=== PATIENT | male | born 1995 | race Caucasian/White ===

== ENCOUNTER 2016-09-27 18:18 | Emergency (ER) | payer OTHER ==
[2016-09-27 18:24] VITALS: BP 154/99; PULSE 112; TEMP 98; BMI 34.1
[2016-09-27] MEDS ORDERED: DIPHTH,PERTUSS(ACELL),TET 0.5 ML DISP.SYRIN IM ONE (19:03)
--- NOTE | 2016-09-27 19:15 | PDOC ---
History of Present Illness - General Chief Complaint: Laceration Stated Complaint: LT HAND LACERATION Time Seen by Provider: 09/27/16 18:48 History Source: Patient - History of Present Illness Occurred: reports: this afternoon Upper Extremity Pain Location: left: hand Method of Injury: reports: fell Past History - Past Medical History Allergies/Adverse Reactions: Allergies Allergy/AdvReac Type Severity Reaction Status Date / Time No Known Allergies Allergy Verified 09/27/16 18:24 Home Medications: Ambulatory Orders Amox-Tr/K Cl [Augmentin - 875Mg Tablet] 1 tab PO BID #20 tablet 12/01/15 Fluticasone Prop 0.05% Nasal [Flonase -] 1 spray NS BID #1 spray.pump 12/01/15 Azithromycin [Zithromax -] 250 mg PO DAILY #4 tab 06/14/16 Cetirizine HCl [Zyrtec -] 10 mg PO DAILY #30 tablet 06/14/16 Montelukast Na [Singulair -] 10 mg PO HS #30 tablet 06/14/16 Other medical history: DENIES - Immunization History Immunization Up to Date: No - Psycho/Social/Smoking Cessation Hx Anxiety: No Suicidal Ideation: No Smoking Status: No Smoking History: Never smoked Number of Cigarettes Smoked Daily: 0 Information on smoking cessation initiated: No Hx Alcohol Use: No Drug/Substance Use Hx: No Substance Use Type: None Review of Systems - Review of Systems Neurological: No: Headache, Tingling *Physical Exam - Vital Signs Last Vital Signs Temp Pulse Resp BP Pulse Ox 98 F 112 H 18 154/99 99 09/27/16 18:20 09/27/16 18:20 09/27/16 18:20 09/27/16 18:20 09/27/16 18:20 - Physical Exam General Appearance: Yes: Appropriately Dressed. No: Apparent Distress HEENT: positive: Normal Voice Neck: positive: Supple Respiratory/Chest: negative: Respiratory Distress Extremity: positive: Other (multiple abrasions to L palm, no fb on palpation) Integumentary: positive: Dry, Warm Neurologic: positive: Fully Oriented, Alert, Normal Mood/Affect ED Treatment Course - RADIOLOGY Radiology Studies Ordered: Category Date Time Status HAND- LEFT [RAD] Stat Radiology 09/27/16 19:03 Ordered Medical Decision Making - Medical Decision Making 09/27/16 19:12 21-year-old male presents with left hand lac after fall today. Patient states while at work, tripped and fell using his left hand to break fall and in the process, struck hand against glass window which shattered into palm as per patient. Concern about foreign body. Patient well-appearing and stable with multiple superficial abrasions to palm, low suspicion for foreign body, but will check x-ray and update tetanus 09/27/16 19:36 XR neg for FB. Pt stable for discharge 09/27/16 19:36 *DC/Admit/Observation/Transfer Diagnosis at time of Disposition: Hand abrasion Qualifiers: Encounter type: initial encounter Laterality: left Qualified Code(s): S60.512A - Abrasion of left hand, initial encounter - Discharge Dispostion Disposition: HOME Condition at time of disposition: Good - Referrals Referrals: Chary Guillen [Primary Care Provider] - - Patient Instructions Printed Discharge Instructions: DI for Abrasion Additional Instructions: Take otc pain meds as needed
== END 2016-09-27 19:35 | disposition home or self-care (01) ==
LOC: JERFT 18:18
DX: S60.512A Abrasion of left hand, initial encounter (principal); W01.10XA Fall on same level from slipping, tripping and stumbling with subsequent striking against unspecified object, initial encounter; Y93.89 Activity, other specified; Y92.69 Other specified industrial and construction area as the place of occurrence of the external cause; Y99.0 Civilian activity done for income or pay
CPT/HCPCS: 73130-TC-LT; 90715; 99281-25

== ENCOUNTER 2016-12-18 11:57 | Emergency (ER) | payer SELFPAY ==
[2016-12-18 12:05] VITALS: BP 150/83; PULSE 86; TEMP 97.5; BMI 33.6
--- NOTE | 2016-12-18 12:11 | PDOC ---
History of Present Illness - General Chief Complaint: Cold Symptoms Stated Complaint: SOB, COUGH Time Seen by Provider: 12/18/16 12:07 History Source: Patient Exam Limitations: No Limitations - History of Present Illness Initial Comments: CHIEF COMPLAINT: 21 y/o afebrile male with no significant PMH c/o dry cough, runny nose, nasal congestion for the past 6 days. HISTORY OF PRESENT ILLNESS: He states this morning the cough was worse and he felt like he was wheezing. The patient denies f/c, RIOS, neck pain, body aches, n /v/d, CP, SOB, abd pain, back pain, hematuria, dysuria. He has been taking tylenol cold liquid with little relief. Vital signs on arrival are within normal limits. REVIEW OF SYSTEMS: GENERAL/CONSTITUTIONAL: No fever/chills. No weakness. No weight change. HEAD, EYES, EARS, NOSE AND THROAT: No change in vision. No ear pain or discharge. No sore throat. +runny nose and nasal congestion. CARDIOVASCULAR: No chest pain or shortness of breath. RESPIRATORY: +dry cough and wheezing. No hemoptysis. GASTROINTESTINAL: No abd pain, nausea, vomiting, diarrhea. GENITOURINARY: No dysuria, frequency, or change in urination. MUSCULOSKELETAL: No joint or muscle swelling or pain. No neck or back pain. SKIN: No rash or easy bruising. NEUROLOGIC: No headache, vertigo, loss of consciousness, or loss of sensation. PHYSICAL EXAM: GENERAL: The patient is awake, alert, and fully oriented, in no acute distress. He is well appearing and ambulatory. No cough in the ER. HEAD: Normal with no signs of trauma. No TTP of sinuses. ENT: Pupils equal, round and reactive to light, extraocular movements intact, sclera anicteric, conjunctiva clear. Neck supple. No tonsilar erythema or edema. Uvula midline. No visible rhinorrhea. LUNGS: Very faint expiratory wheezing in b/l bases. Normal excursion. No respiratory distress or use of accessory muscles. CV: RRR, S1/S2, no MRG. Cap refill < 2 sec. ABDOMEN: Soft, non-distended, non-tender even to deep palpation, no hepatomegaly or splenomegaly, no masses. EXTREMITIES: Normal range of motion, no edema. NEUROLOGICAL: Normal speech, normal gait. CN II-XII grossly intact. PSYCH: Normal mood, normal affect. SKIN: Warm, dry, normal turgor, no rashes or lesions noted. Past History - Past Medical History Allergies/Adverse Reactions: Allergies Allergy/AdvReac Type Severity Reaction Status Date / Time No Known Allergies Allergy Verified 12/18/16 12:02 Home Medications: Ambulatory Orders Albuterol Sulfate Inhaler - [Ventolin HFA Inhaler -] 1 - 2 inh PO Q4H #1 inhaler 12/18/16 Asthma: Yes (as a child) - Immunization History Immunization Up to Date: No - Psycho/Social/Smoking Cessation Hx Anxiety: No Suicidal Ideation: No Smoking Status: No Smoking History: Never smoked Have you smoked in the past 12 months: No Number of Cigarettes Smoked Daily: 0 Information on smoking cessation initiated: No Hx Alcohol Use: No Drug/Substance Use Hx: No Substance Use Type: None *Physical Exam - Vital Signs Last Vital Signs Temp Pulse Resp BP Pulse Ox 97.5 F L 86 18 150/83 100 12/18/16 12:03 12/18/16 12:03 12/18/16 12:03 12/18/16 12:03 12/18/16 12:03 Medical Decision Making - Medical Decision Making A/P: 21 y/o afebrile male with seasonal allergy symptoms. Will give 1 duoneb in the ER for wheezing Will discharge to home with rx for albuterol neb. suggested he take daily over the counter zyrtec/claritin OR siria for allergy symptoms and f/u with Dr. Martínez to establish PCP. Instructed the patient to return to the ER with any worsening or concerning symptoms. The patient verbalizes understanding of all instructions, has no further questions and is awaiting discharge. *DC/Admit/Observation/Transfer Diagnosis at time of Disposition: Nasal congestion, Wheezing Seasonal allergies Qualifiers: Allergic rhinitis trigger: unspecified Qualified Code(s): J30.2 - Other seasonal allergic rhinitis - Discharge Dispostion Condition at time of disposition: Good - Prescriptions Prescriptions: Albuterol Sulfate Inhaler - [Ventolin HFA Inhaler -] 1 - 2 inh PO Q4H #1 inhaler - Referrals Referrals: Cem Alcazar MD [Staff Physician] - Adrian Martínez MD [Staff Physician] - - Patient Instructions Printed Discharge Instructions: DI for Nasal Congestion, Allergies, Respiratory (Alternative Therapy) Additional Instructions: Discharge Instructions: -Take daily over the counter zyrtec, siria OR claritin for your nasal congestion/runny nose/cough -Use albuterol inhaler as prescribed if needed for wheezing -Follow up with Dr. Martínez within 2 weeks to establish a Primary Care Physician -return to the ER with any worsening or concerning symptoms
[2016-12-18] MEDS ORDERED: ALBUTEROL SO4 2.5/IPRATROPIUM 0.5 INH SOL 3 ML VIAL.NEB. NEB ONE ×2 (12:28→12:31)
== END 2016-12-18 12:43 | disposition home or self-care (01) ==
LOC: JERFT 11:57
PROC: 3E0F7GC Introduction of Other Therapeutic Substance into Respiratory Tract, Via Natural or Artificial Opening (ICD-10-PCS; principal; 2016-12-18)
DX: J30.2 Other seasonal allergic rhinitis (principal)
CPT/HCPCS: 99281-25

== ENCOUNTER 2017-12-05 01:20 | Emergency (ER) | payer OTHER ==
[2017-12-05 01:44] VITALS: BP 133/94; PULSE 116; TEMP 98.1; BMI 35.3
[2017-12-05] MEDS ORDERED: FAMOTIDINE 20 MG/50 ML IVPB 20 MG/50 ML MG IVPB ONE ×2 (02:08→02:41)
[2017-12-05] MEDS ORDERED: SODIUM CHLORIDE 0.9% 500 ML INFUS.BAG IV ONE (02:08)
[2017-12-05] MEDS ORDERED: ONDANSETRON 4 MG/2 ML VIAL IVPB ONE (02:08)
--- NOTE | 2017-12-05 02:08 | PDOC ---
History of Present Illness - General History Source: Patient, Old Records Exam Limitations: No Limitations - History of Present Illness Initial Comments: 12/05/17 03:53 Patient is a 22 year old male with a significant past medical history of asthma , and eczema, who presents to the ED with complaints of nausea/vomiting that began yesterday afternoon. Patient reports coming to the ED for palpitations 2 days ago and states he was instructed to return to the ED if he began to experience vomiting and diarrhea. He reports experiencing 1 episode of diarrhea last night followed by 1 episode of vomiting just prior to ED arrival, prompting him to come into the ED for further evaluation. Patient reports experiencing associated symptoms of Sob since tuesday afternoon. Denies chest pain, Sob. Denies nausea, vomiting. Denies fevers, chills. Denies contact with sick individuals, out of state travelling. Denies constipation, dysuria, hematuria. Denies any other symptoms. Allergies: None Social history: Lives with girlfriend. No smoking. No alcohol. No illicit drugs. Surgical history: None PMD: Dr. Guillen. <Gil Spencer - Last Filed: 12/05/17 03:53> <Nataly Ulloa - Last Filed: 12/05/17 05:10> - General Chief Complaint: Vomiting/Diarrhea Stated Complaint: VOMITING,DIARRHEA Time Seen by Provider: 12/05/17 01:34 Past History <Gil Spencer - Last Filed: 12/05/17 03:53> - Past Medical History Asthma: Yes (as a child) COPD: No - Immunization History Immunization Up to Date: No - Suicide/Smoking/Psychosocial Hx Smoking Status: No Smoking History: Never smoked Have you smoked in the past 12 months: No Number of Cigarettes Smoked Daily: 0 Information on smoking cessation initiated: No Hx Alcohol Use: No Drug/Substance Use Hx: No Substance Use Type: None <Nataly Ulloa - Last Filed: 12/05/17 05:10> - Past Medical History Allergies/Adverse Reactions: Allergies Allergy/AdvReac Type Severity Reaction Status Date / Time No Known Allergies Allergy Verified 12/02/17 04:59 Home Medications: Ambulatory Orders Albuterol Sulfate Inhaler - [Ventolin HFA Inhaler -] 1 - 2 inh PO Q4H #1 inhaler 12/18/16 Cephalexin Monohydrate [Keflex -] 500 mg PO BID #20 capsule 07/23/17 Sulfamethoxazole/Trimethoprim [Bactrim Ds -] 1 tab PO DAILY #10 tablet 07/23/17 Azithromycin [Zithromax -] 250 mg PO DAILY #4 tablet 12/05/17 Review of Systems - Review of Systems Able to Perform ROS?: Yes Comments:: 12/05/17 03:53 GENERAL/CONSTITUTIONAL: No fever or chills. No weakness. HEAD, EYES, EARS, NOSE AND THROAT: No change in vision. No ear pain or discharge. No sore throat. CARDIOVASCULAR: +Shortness of breath. No chest pain RESPIRATORY: No cough, wheezing, or hemoptysis. GASTROINTESTINAL: +Vomiting. +Nausea. +Diarrhea. No constipation. GENITOURINARY: No dysuria, frequency, or change in urination. MUSCULOSKELETAL: No joint or muscle swelling or pain. No neck or back pain. SKIN: No rash NEUROLOGIC: No headache, vertigo, loss of consciousness, or change in strength/ sensation. ENDOCRINE: No increased thirst. No abnormal weight change. HEMATOLOGIC/LYMPHATIC: No anemia, easy bleeding, or history of blood clots. ALLERGIC/IMMUNOLOGIC: No hives or skin allergy. <Gil Spencer - Last Filed: 12/05/17 03:53> *Physical Exam - Vital Signs Last Vital Signs Temp Pulse Resp BP Pulse Ox 98.1 F 116 H 20 133/94 100 12/05/17 01:42 12/05/17 01:42 12/05/17 01:42 12/05/17 01:42 12/05/17 01:42 - Physical Exam Comments: 12/05/17 03:54 GENERAL: Awake, alert, and fully oriented, in no acute distress HEAD: No signs of trauma EYES: PERRLA, EOMI, sclera anicteric, conjunctiva clear ENT: Auricles normal inspection, hearing grossly normal, nares patent, oropharynx clear without exudates. Moist mucosa NECK: Normal ROM, supple, no lymphadenopathy, JVD, or masses LUNGS: Breath sounds equal, clear to auscultation bilaterally. No wheezes, and no crackles HEART: Regular rate and rhythm, normal S1 and S2, no murmurs, rubs or gallops ABDOMEN: Soft, nontender, normoactive bowel sounds. No guarding, no rebound. No masses EXTREMITIES: Normal range of motion, no edema. No clubbing or cyanosis. No cords, erythema, or tenderness NEUROLOGICAL: Cranial nerves II through XII grossly intact. Normal speech, normal gait SKIN: Warm, Dry, normal turgor, no rashes or lesions noted. <Gil Spencer - Last Filed: 12/05/17 03:53> - Vital Signs Last Vital Signs Temp Pulse Resp BP Pulse Ox 98.1 F 116 H 20 133/94 100 12/05/17 01:42 12/05/17 01:42 12/05/17 01:42 12/05/17 01:42 12/05/17 01:42 <Nataly Ulloa - Last Filed: 12/05/17 05:10> Heart Score/ECG Review - ECG Intrepretation Comment:: 12/05/17 02:57 Completed 2:41:38 Normal Sinus rhythm POssible anterior infarct, age undetermiend Abnormal ECG Vent, rate 94 bpm VA interval 144 ms QRS duration 88 ms <Gil Spencer - Last Filed: 12/05/17 03:53> ED Treatment Course - LABORATORY CBC & Chemistry Diagram: 12/05/17 02:51 12/05/17 02:51 - Medications Given in the ED: ED Medications Discontinued Medications Generic Name Dose Route Start Last Admin Trade Name Freq PRN Reason Stop Dose Admin Famotidine/Sodium Chloride 20 mg in 50 mls @ 100 mls/hr 12/05/17 02:08 02:51 Pepcid 20 Mg Premixed Ivpb - IVPB 12/05/17 02:37 100 mls/hr ONCE ONE Administration Ondansetron HCl 4 mg 12/05/17 02:08 12/05/17 02:51 Zofran Injection IVPB 12/05/17 02:09 4 mg ONCE ONE Administration Sodium Chloride 1,000 ml 12/05/17 02:08 12/05/17 02:51 Normal Saline - IV 12/05/17 02:09 1,000 ml ONCE ONE Administration <Gil Spencer - Last Filed: 12/05/17 03:53> - LABORATORY CBC & Chemistry Diagram: 12/05/17 02:51 12/05/17 02:51 <Nataly Ulloa - Last Filed: 12/05/17 05:10> *DC/Admit/Observation/Transfer - Attestations Scribe Attestion: 12/05/17 03:54 Documentation prepared by Gil Spencer, acting as medical claims examiner for Nataly Ulloa MD/DO. <Gil Spencer - Last Filed: 12/05/17 03:53> - Discharge Dispostion Admit: No <Nataly Ulloa - Last Filed: 12/05/17 05:10> Diagnosis at time of Disposition: Atypical pneumonia - Discharge Dispostion Disposition: HOME Condition at time of disposition: Improved - Prescriptions Prescriptions: Azithromycin [Zithromax -] 250 mg PO DAILY #4 tablet - Referrals Referrals: Caterina Riley MD [Primary Care Provider] - - Patient Instructions Printed Discharge Instructions: DI for Atypical Pneumonia - Post Discharge Activity
[2017-12-05] MEDS ORDERED: ONDANSETRON 4 MG/2 ML VIAL ONE (02:41)
[2017-12-05 03:04] LABS: BASO % 1.2 % (0-2.0); EOS % 6.5 % (0-4.5); HEMATOCRIT 44.9 % (35.4-49); HEMOGLOBIN 15.2 GM/dL (11.7-16.9); LYMPH % 10.4 % (8-40); MCHC 33.9 g/dl (32.0-35.9); MEAN CELL VOLUME 79.7 fl (80-96); MEAN PLT VOLUME 9.1 fl (7.5-11.1); MONO % 8.6 % (3.8-10.2); NEUT % 73.3 % (42.8-82.8); PLATELET COUNT 222 K/MM3 (134-434); RBC 5.64 M/mm3 (4.00-5.60); RDW 14.7 % (11.9-15.9); WHITE BLOOD COUNT 7.5 K/mm3 (4.0-10.0)
[2017-12-05 03:35] LABS: ALK PHOS 68 U/L (45-117); ANION GAP 7 (8-16); BILIRUBIN,TOTAL 0.3 mg/dL (0.2-1.0); BLOOD UREA NITROGEN 10 mg/dL (7-18); CALCIUM 8.4 mg/dL (8.5-10.1); CHLORIDE 101 mmol/L (98-107); CO2 29 mmol/L (21-32); CREATININE 1.1 mg/dL (0.7-1.3); GLUCOSE,RANDOM 96 mg/dL (74-106); LIPASE 173 U/L (73-393); SGOT/AST 28 U/L (15-37); SGPT/ALT 41 U/L (12-78); SODIUM 137 mmol/L (136-145); TOT PROT 8.2 g/dl (6.4-8.2)
[2017-12-05] MEDS ORDERED: CEFTRIAXONE 1 GM in DEXTROSE 5%-WATER - 50 ML IVPB ONE (03:49)
[2017-12-05] MEDS ORDERED: AZITHROMYCIN IVPB 500 MG in DEXTROSE 5%-WATER - 250 ML IVPB ONE (03:49)
[2017-12-05] MEDS ORDERED: AZITHROMYCIN IVPB 250 ML IVPB ONE (03:58)
[2017-12-05] MEDS ORDERED: CEFTRIAXONE 1 GM/50 ML BAG ONE (03:58)
[2017-12-05 04:54] LABS: ALBUMIN 4.7 g/dl (3.4-5.0)
--- NOTE | 2017-12-14 10:11 | EKG ---
Test Reason : Blood Pressure : / mmHG Vent. Rate : 094 BPM Atrial Rate : 094 BPM P-R Int : 144 ms QRS Dur : 088 ms QT Int : 336 ms P-R-T Axes : 059 043 040 degrees QTc Int : 420 ms NORMAL SINUS RHYTHM POSSIBLE ANTERIOR INFARCT , AGE UNDETERMINED ABNORMAL ECG WHEN COMPARED WITH ECG OF 02-DEC-2017 05:46, NO SIGNIFICANT CHANGE WAS FOUND Confirmed by JANNET MORGAN MD ([id number]) on 12/14/2017 10:11:03 AM Referred By: Confirmed By:JANNET MORGAN MD
== END 2017-12-05 06:04 | disposition home or self-care (01) ==
LOC: JER 01:20
PROC: 3E03329 Introduction of Other Anti-infective into Peripheral Vein, Percutaneous Approach (ICD-10-PCS; principal; 2017-12-05)
PROC: 3E03329 Introduction of Other Anti-infective into Peripheral Vein, Percutaneous Approach (ICD-10-PCS; 2017-12-05)
PROC: 3E033GC Introduction of Other Therapeutic Substance into Peripheral Vein, Percutaneous Approach (ICD-10-PCS; 2017-12-05)
PROC: 3E033GC Introduction of Other Therapeutic Substance into Peripheral Vein, Percutaneous Approach (ICD-10-PCS; 2017-12-05)
DX: J18.9 Pneumonia, unspecified organism (principal)
CPT/HCPCS: 36415; 71046-TC-FY; 80053; 83690; 85025; 93005; 93010; 99281-25

== ENCOUNTER 2018-06-04 04:20 | Emergency (ER) | payer OTHER ==
--- NOTE | 2018-06-04 04:39 | PDOC ---
History of Present Illness - General History Source: Patient Exam Limitations: No Limitations - History of Present Illness Initial Comments: 06/04/18 04:50 Best Contact: PCP: Dr. Guillen [phone] Pmhx:0 Pshx:0 Allergies:NKDA FH:0 Social Hx: Cigarettes/ 0 Alcohol/ Social Drugs/0 LMP:N/A 22-year-old male presents to the ER complaining of a sore throat 20 hours and is described as 2/10 soreness that's nonradiating and intermittent. Patient states he feels a postnasal drip down his throat with rhinorrhea but denies fever, chills, nausea/vomiting, headache, dizziness, lightheadedness, facial pains, earaches, neck pain/stiffness, back pains, chest pain, shortness of breath, abdominal pains, flank pains, urinary symptoms. <Jeremiah Jauregui - Last Filed: 06/04/18 04:50> <Josiah Buitrago - Last Filed: 06/04/18 05:24> - General Chief Complaint: Sore Throat Stated Complaint: SORE THROAT Time Seen by Provider: 06/04/18 04:34 Past History - Past Medical History Asthma: Yes (as a child) COPD: No - Immunization History Immunization Up to Date: No - Suicide/Smoking/Psychosocial Hx Smoking Status: No Smoking History: Never smoked Have you smoked in the past 12 months: No Number of Cigarettes Smoked Daily: 0 Information on smoking cessation initiated: No Hx Alcohol Use: No Drug/Substance Use Hx: No Substance Use Type: None <Jeremiah Jauregui - Last Filed: 06/04/18 04:50> <Josiah Buitrago - Last Filed: 06/04/18 05:24> - Past Medical History Allergies/Adverse Reactions: Allergies Allergy/AdvReac Type Severity Reaction Status Date / Time No Known Allergies Allergy Verified 06/04/18 04:34 Home Medications: Ambulatory Orders Albuterol Sulfate Inhaler - [Ventolin HFA Inhaler -] 1 - 2 inh PO Q4H #1 inhaler 12/18/16 Review of Systems - Review of Systems Able to Perform ROS?: Yes Comments:: 06/04/18 04:52 CONSTITUTIONAL: Absent: fever, chills, diaphoresis, generalized weakness, malaise, loss of appetite HEENT: +sore throat Absent: rhinorrhea, nasal congestion, throat swelling, difficulty swallowing, mouth swelling, ear pain, eye pain, visual Changes CARDIOVASCULAR: Absent: chest pain, loss of consciousness, palpitations, irregular heart rate, peripheral edema RESPIRATORY: Absent: cough, shortness of breath, dyspnea with exertion, orthopnea, wheezing, stridor, hemoptysis GASTROINTESTINAL: Absent: abdominal pain, abdominal distension, nausea, vomiting, diarrhea, constipation, melena, hematochezia GENITOURINARY: Absent: dysuria, frequency, urgency, hesitancy, hematuria, flank pain, genital pain MUSCULOSKELETAL: Absent: myalgia, arthralgia, joint swelling Is the patient limited Croatian proficient: No <JuventinoJeremiah - Last Filed: 06/04/18 04:50> *Physical Exam - Vital Signs Last Vital Signs Temp Pulse Resp BP Pulse Ox 98.1 F 84 20 132/78 98 06/04/18 04:35 06/04/18 04:35 06/04/18 04:35 06/04/18 04:35 06/04/18 04:35 - Physical Exam Comments: 06/04/18 04:52 GENERAL: Well developed, well nourished. Awake and alert. No acute distress. HEENT: Normocephalic, atraumatic. PERRLA, EOMI. No conjunctival pallor. Sclera are non- icteric. Moist mucous membranes. Oropharynx is clear. NECK: Supple. Full ROM. No JVD. Carotid pulses 2+ and symmetric, without bruits. No thyromegaly. No lymphadenopathy. CARDIOVASCULAR: Regular rate and rhythm. No murmurs, rubs, or gallops. Distal pulses are 2+ and symmetric. PULMONARY: No evidence of respiratory distress. Lungs clear to auscultation bilaterally. No wheezing, rales or rhonchi. ABDOMINAL: Soft. Non-tender. Non-distended. No rebound or guarding. No organomegaly. Normoactive bowel sounds. <JuventinoJeremiah - Last Filed: 06/04/18 04:50> - Vital Signs Last Vital Signs Temp Pulse Resp BP Pulse Ox 98.1 F 84 20 132/78 98 06/04/18 04:35 06/04/18 04:35 06/04/18 04:35 06/04/18 04:35 06/04/18 04:35 <Minna,Josiah - Last Filed: 06/04/18 05:24> ED Treatment Course - ADDITIONAL ORDERS Additional order review: 06/04/18 04:31 Group A Strep Rapid Antigen - Final Throat <MinnaJosiah holley - Last Filed: 06/04/18 05:24> Medical Decision Making - Medical Decision Making 06/04/18 05:24 The patient was seen and evaluated in conjunction with TEJA Jauregui under my direct supervision, ancillary studies were reviewed. I agree with the plan as outlined by TEJA Jauregui. <Josiah Buitrago - Last Filed: 06/04/18 05:24> *DC/Admit/Observation/Transfer - Discharge Dispostion Decision to Admit order: No <Jeremiah Jauregui - Last Filed: 06/04/18 04:50> <Josiah Buitrago - Last Filed: 06/04/18 05:24> Diagnosis at time of Disposition: Viral pharyngitis - Discharge Dispostion Condition at time of disposition: Stable - Referrals Referrals: Chary Guillen [Primary Care Provider] - Campbell Sanabria MD [Staff Physician] - - Patient Instructions Printed Discharge Instructions: DI for Viral Pharyngitis Additional Instructions: Gargle with saltwater [id number] supportive care Follow with your doctor in the ENT listed on your discharge form Return back to the ER for severe/persistent or worsening symptoms - Post Discharge Activity
[2018-06-04 04:41] VITALS: BP 132/78; PULSE 84; TEMP 98.1; BMI 34.3
== END 2018-06-04 05:27 | disposition home or self-care (01) ==
LOC: JER 04:20
DX: J02.8 Acute pharyngitis due to other specified organisms (principal)
CPT/HCPCS: 87070; 87430; 99281-25

== ENCOUNTER 2018-08-14 21:46 | Emergency (ER) | payer OTHER ==
[2018-08-14 21:52] VITALS: BMI 35.0
--- NOTE | 2018-08-14 23:43 | PDOC ---
History of Present Illness - General Chief Complaint: Diarrhea Stated Complaint: ABD PAIN Time Seen by Provider: 08/14/18 23:42 History Source: Patient Exam Limitations: No Limitations - History of Present Illness Initial Comments: 08/14/18 23:53 23 year old male with PMH asthma, eczema presented to ED for diarrhea since yesterday. Per pt he ate a ham sandwich with mayonnaise last night and then 2 hours after began to feel lower abdominal pain and had loose brown watery diarrhea. He describes the pain as "it feels like my bladder is full", 4.5/10, nonradiating, alleviated by tylenol and peptobismol, no aggravating factors, no association with food, no association with defecation. He reported 3-4 episodes of diarrhea today. He also admitted to headache. He denied dysuria, hematuria, fever, chills, nausea, vomiting, chest pain, shortness of breath, lightheadedness, palpitations. He stated he looked up his symptoms online and is concerned he could have a UTI. He stated he came to the Emergency Department instead of his doctor because he did not have transportation. Surgical history: denied abdominal surgical history. Past History - Past Medical History Allergies/Adverse Reactions: Allergies Allergy/AdvReac Type Severity Reaction Status Date / Time No Known Allergies Allergy Verified 08/14/18 21:53 Home Medications: Ambulatory Orders Albuterol Sulfate Inhaler - [Ventolin HFA Inhaler -] 1 - 2 inh PO Q4H #1 inhaler 12/18/16 Asthma: Yes COPD: No - Immunization History Immunization Up to Date: No - Suicide/Smoking/Psychosocial Hx Smoking Status: No Smoking History: Never smoked Have you smoked in the past 12 months: No Number of Cigarettes Smoked Daily: 0 Hx Alcohol Use: No Drug/Substance Use Hx: No Substance Use Type: None Review of Systems - Review of Systems Able to Perform ROS?: Yes Comments:: 08/14/18 23:56 General: denied fever, chills, night sweats, generalized weakness. HEENT: denied sore throat, rhinorrhea, ear pain. Heart: denied chest pain, palpitations, syncope, lower extremity swelling, diaphoresis. Respiratory: denied shortness of breath, cough, sputum production, hemoptysis. Abdomen: admitted to abdominal pain, diarrhea. denied nausea, vomiting, constipation, blood in stool. : denied dysuria, increased urinary frequency, hematuria, urinary incontinence , flank pain. Back: denied back pain. Musculoskeletal: denied joint pain, muscle pain, joint swelling. Neurological: admitted to headache. denied dizziness, numbness, tingling, weakness. Skin: denied rash, laceration, abrasion. *Physical Exam - Vital Signs Last Vital Signs Temp Pulse Resp BP Pulse Ox 98.0 F 112 H 18 134/97 99 08/14/18 21:50 08/14/18 21:50 08/14/18 21:50 08/14/18 21:50 08/14/18 21:50 - Physical Exam Comments: 08/14/18 23:57 Constitutional: Well-nourished, Well-developed, appearing stated age. HEENT: head is normocephalic, atraumatic. EOMI. PERRLA. Neck: supple. Full ROM. Heart: regular rhythm. no murmurs, rubs or gallops. Lungs: clear to auscultation bilaterally. no crackles, rhonchi or wheezing. no stridor. Abdomen: soft. verbalized tenderness to palpation of LLQ, suprapubic area and RLQ. normal bowel sounds. no rebound, guarding, masses. Extremities: Peripheral pulses intact. No lower extremity edema. Neurological: CN 2-12 grossly intact. Moves all four extremities. Psych: awake, alert, oriented x3. Follows commands. Answers questions appropriately. ED Treatment Course - LABORATORY CBC & Chemistry Diagram: 08/15/18 00:15 08/15/18 00:15 Medical Decision Making - Medical Decision Making 08/14/18 23:58 23 year old male with PMH asthma, eczema presented to ED for lower abdominal pain associated with diarrhea and headache. Initial Vital Signs Temp Pulse Resp BP Pulse Ox 98.0 F 112 H 18 134/97 99 08/14/18 21:50 08/14/18 21:50 08/14/18 21:50 08/14/18 21:50 08/14/18 21:50 Afebrile. Tachycardia. No tachypnea. No hypotension. No hypoxia on room air. Pt requested to be tested for UTI. Pending UA. Pending CBC, CMP. Normal saline ordered for dehydration. Tylenol ordered for pain. 08/15/18 00:09 Pt urinated and reported improvement of pain. Now reports pain is only suprapubic. Abdomen soft, nontender to palpation. 08/15/18 00:35 CBC WBC 10.0 K/mm3 (4.0-10.0) 08/15/18 00:15 RBC 5.56 M/mm3 (4.00-5.60) 08/15/18 00:15 Hgb 16.0 GM/dL (11.7-16.9) 08/15/18 00:15 Hct 45.0 % (35.4-49) 08/15/18 00:15 MCV 81.0 fl (80-96) 08/15/18 00:15 MCH 28.8 pg (25.7-33.7) 08/15/18 00:15 MCHC 35.6 g/dl (32.0-35.9) 08/15/18 00:15 RDW 14.8 % (11.9-15.9) 08/15/18 00:15 Plt Count 313 K/MM3 (134-434) D 08/15/18 00:15 MPV 8.5 fl (7.5-11.1) 08/15/18 00:15 Absolute Neuts (auto) 6.5 K/mm3 (1.5-8.0) 08/15/18 00:15 Neutrophils % 64.5 % (42.8-82.8) 08/15/18 00:15 Lymphocytes % 20.7 % (8-40) D 08/15/18 00:15 Monocytes % 7.4 % (3.8-10.2) 08/15/18 00:15 Eosinophils % 7.3 % (0-4.5) H 08/15/18 00:15 Basophils % 0.1 % (0-2.0) 08/15/18 00:15 Nucleated RBC % 0 % (0-0) 08/15/18 00:15 Urine Test Results Urine Color Yellow 08/15/18 00:02 Urine Appearance Clear 08/15/18 00:02 Urine pH 6.0 (5.0-8.0) 08/15/18 00:02 Ur Specific [place] 1.021 (1.010-1.035) 08/15/18 00:02 Urine Protein 1+ (NEGATIVE) H 08/15/18 00:02 Urine Glucose (UA) Negative (NEGATIVE) 08/15/18 00:02 Urine Ketones 1+ (NEGATIVE) H 08/15/18 00:02 Urine Blood Negative (NEGATIVE) 08/15/18 00:02 Urine Nitrite Negative (NEGATIVE) 08/15/18 00:02 Urine Bilirubin Negative (<2.0 mg/dL) 08/15/18 00:02 Ur Leukocyte Esterase Negative (NEGATIVE) 08/15/18 00:02 Urine Mucus Rare 08/15/18 00:02 CMP Sodium 137 mmol/L (136-145) 08/15/18 00:15 Potassium 3.8 mmol/L (3.5-5.1) 08/15/18 00:15 Chloride 101 mmol/L (98-107) 08/15/18 00:15 Carbon Dioxide 28 mmol/L (21-32) 08/15/18 00:15 Anion Gap 8 MMOL/L (8-16) 08/15/18 00:15 BUN 16 mg/dL (7-18) 08/15/18 00:15 Creatinine 1.2 mg/dL (0.55-1.3) 08/15/18 00:15 Creat Clearance w eGFR > 60 (>60) 08/15/18 00:15 Random Glucose 113 mg/dL (74-106) H 08/15/18 00:15 Calcium 9.3 mg/dL (8.5-10.1) 08/15/18 00:15 Total Bilirubin 0.6 mg/dL (0.2-1) 08/15/18 00:15 AST 19 U/L (15-37) 08/15/18 00:15 ALT 32 U/L (13-61) 08/15/18 00:15 Alkaline Phosphatase 78 U/L (45-117) 08/15/18 00:15 Total Protein 8.6 g/dl (6.4-8.2) H 08/15/18 00:15 Albumin 4.7 g/dl (3.4-5.0) 08/15/18 00:15 Patient has had loose watery diarrhea since last night, with no electrolyte abnormalities, no leukocytosis, no LFT abnormalities. Pt is ambulating well unassisted. Patient reported pain improved, 2/10. Abdomen soft, nontender to palpation. 08/15/18 01:39 Vital Signs Temperature 98.5 F 08/15/18 01:36 Pulse Rate 80 08/15/18 01:36 Respiratory Rate 18 08/15/18 01:36 Blood Pressure 122/69 08/15/18 01:36 O2 Sat by Pulse Oximetry (%) 100 08/15/18 01:36 Tachycardia improved with fluid hydration. Pt is still afebrile. No hypotension. No hypoxia on room air. Pt will be discharged. *DC/Admit/Observation/Transfer Diagnosis at time of Disposition: Diarrhea - Discharge Dispostion Disposition: HOME Condition at time of disposition: Improved Decision to Admit order: No - Referrals Referrals: Chary Guillen [Primary Care Provider] - - Patient Instructions Printed Discharge Instructions: DI for Diarrhea and Traveler's Diarrhea -- Adult Additional Instructions: You were seen today for diarrhea. Your lab work was normal. Take tylenol over the counter for your pain. Take as advised on label. Drink gatorade/pedialyte to replace the fluids and electrolytes you are losing in the diarrhea. Follow up with your primary care doctor in 1-2 days, your care is not complete until you follow up. Return to the Emergency Department for increasing pain, pain primarily in the right lower quadrant, fever, chills, vomiting, blood in stool, blood in vomit, chest pain, shortness of breath, lightheadedness like you may pass out or any other new, worsening or concerning symptoms. - Post Discharge Activity
--- NOTE | 2018-08-14 23:48 | PDOC ---
Attending Attestation - HPI HPI: 08/15/18 00:06 23 y/o male with a past medical history of asthma who presents to the emergency department for evaluation of a 1 day history diarrhea. Pt reports abdominal pain with 4 episodes of diarrhea 2 hours after eating a ham sandwich with mayonnaise. Denies chest pain, shortness of breath, fevers, chills, nausea, vomiting, and lightheadedness. PCP: Dr. Guillen - Physicial Exam PE: wnwd 23 y/o male in no acute distress head ncat neck supple Heart RRR. No gallops, murmurs, or rubs. lungs clear to auscultation bilaterally abd soft,nontender, no rebound or guarding. ext no e/c/c, MAEx4 skin warm and dry, no rashes neuro A&Ox3,no gross focal neuro deficits <Nando Shirley - Last Filed: 08/15/18 01:43> - Resident Resident Name: Heather Escobar - ED Attending Attestation I have performed the following: I have examined & evaluated the patient, The case was reviewed & discussed with the resident, I agree w/resident's findings & plan, Exceptions are as noted - Medical Decision Making 08/15/18 02:24 pt has multiple loose stools, nonbloody, abd cramping no focal abd tenderness no fever,no vomiting pt's symptoms improved with IVF, labs unremarkable imp diarrhea <Carmelina England - Last Filed: 08/15/18 02:25> Attestations - Attestations Documentation prepared by Nando Shirley, acting as medical office representative for Carmelina England MD. <Nando Shirley - Last Filed: 08/15/18 01:43>
[2018-08-15] MEDS ORDERED: SODIUM CHLORIDE 1,000 ML IV STA
[2018-08-15] MEDS ORDERED: ACETAMINOPHEN 1000 MG/100 ML VIAL (NON FORMULARY) IVPB ONE
[2018-08-15] MEDS ORDERED: ACETAMINOPHEN 325 MG TABLET (FP) PO ONE (00:10)
[2018-08-15 00:13] LABS: URINE APPEARANCE CLEAR; URINE BILIRUBIN NEGATIVE (<2.0 mg/dL); URINE COLOR YELLOW; URINE GLUCOSE (UA) NEGATIVE (NEGATIVE); URINE KETONE 1+ (NEGATIVE); URINE LEUK ESTERASE NEGATIVE (NEGATIVE); URINE NITRITE NEGATIVE (NEGATIVE); URINE PROTEIN 1+ (NEGATIVE)
[2018-08-15 00:26] LABS: BASO % 0.1 % (0-2.0); EOS % 7.3 % (0-4.5); LYMPH % 20.7 % (8-40); MCH 28.8 pg (25.7-33.7); MCHC 35.6 g/dl (32.0-35.9); MEAN PLT VOLUME 8.5 fl (7.5-11.1); MONO % 7.4 % (3.8-10.2); NEUT % 64.5 % (42.8-82.8); PLATELET COUNT 313 K/MM3 (134-434); RBC 5.56 M/mm3 (4.00-5.60); RDW 14.8 % (11.9-15.9)
[2018-08-15 00:31] LABS: URINE MUCUS RARE
[2018-08-15 00:51] LABS: ALBUMIN 4.7 g/dl (3.4-5.0); ALK PHOS 78 U/L (45-117); ANION GAP 8 MMOL/L (8-16); BILIRUBIN,TOTAL 0.6 mg/dL (0.2-1); BLOOD UREA NITROGEN 16 mg/dL (7-18); CALCIUM 9.3 mg/dL (8.5-10.1); CHLORIDE 101 mmol/L (98-107); CO2 28 mmol/L (21-32); CREATININE 1.2 mg/dL (0.55-1.3); GLUCOSE,RANDOM 113 mg/dL (74-106); POTASSIUM 3.8 mmol/L (3.5-5.1); SGOT/AST 19 U/L (15-37); SGPT/ALT 32 U/L (13-61); SODIUM 137 mmol/L (136-145); TOT PROT 8.6 g/dl (6.4-8.2)
[2018-08-15] MEDS ORDERED: ACETAMINOPHEN 325 MG TABLET (FP) ONE (00:54)
[2018-08-15 01:37] VITALS: BP 122/69; PULSE 80; TEMP 98.5
== END 2018-08-15 01:48 | disposition home or self-care (01) ==
LOC: JER 21:46
PROC: 3E0337Z Introduction of Electrolytic and Water Balance Substance into Peripheral Vein, Percutaneous Approach (ICD-10-PCS; principal; 2018-08-14)
DX: R10.30 Lower abdominal pain, unspecified (principal); R19.7 Diarrhea, unspecified
CPT/HCPCS: 36415; 80053; 81003; 81015; 85025; 96360; 99281-25; 99282-25; J7030

== ENCOUNTER 2018-08-29 10:40 | Emergency (ER) | payer OTHER ==
[2018-08-29 10:51] VITALS: BP 118/88; PULSE 89; TEMP 98; BMI 36.8
--- NOTE | 2018-08-29 12:16 | PDOC ---
History of Present Illness - General Stated Complaint: CHEST PAIN Time Seen by Provider: 08/29/18 11:58 History Source: Patient Exam Limitations: No Limitations - History of Present Illness Initial Comments: 08/29/18 12:16 Patient came for evaluation of persistent chest pain, is mid epigastric/sternal and worsens with movement. States ate dinner early yesterday of porkchops that were fried and states a few hours later had onset of this pain. Denies belching , history epigastric problems. States this morning when he woke up, he stretched and pain became mildly worse. Took a Tylenol last night with minimal resolved. Denies fever, cough although had URI symptoms a few days previous with postnasal drainage. 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 Patient has no cardiac history, no chest pain or palpitations, no dizziness or shortness of breath. 08/29/18 18:17 Timing/Duration: reports: getting worse, yesterday Severity: reports: mild, moderate Associated Symptoms: reports: chest pain/soreness, muscle aches. denies: cough , nasal congestion Past History - Travel Traveled outside of the country in the last 30 days: No Close contact w/someone who was outside of country & ill: No - Past Medical History Allergies/Adverse Reactions: Allergies Allergy/AdvReac Type Severity Reaction Status Date / Time No Known Allergies Allergy Verified 08/14/18 21:53 Home Medications: Ambulatory Orders Albuterol Sulfate Inhaler - [Ventolin HFA Inhaler -] 1 - 2 inh PO Q4H #1 inhaler 12/18/16 Famotidine [Pepcid -] 20 mg PO BID #14 tablet 08/29/18 Naproxen [Naprosyn -] 500 mg PO BID #30 tablet 08/29/18 Asthma: Yes COPD: No - Surgical History Neurologic Surgery: No - Immunization History Immunization Up to Date: No - Suicide/Smoking/Psychosocial Hx Smoking Status: No Smoking History: Never smoked Have you smoked in the past 12 months: No Number of Cigarettes Smoked Daily: 0 Information on smoking cessation initiated: No Hx Alcohol Use: No Drug/Substance Use Hx: No Substance Use Type: None Review of Systems - Review of Systems Able to Perform ROS?: Yes Is the patient limited Indonesian proficient: Yes Constitutional: Yes: Symptoms Reported, See HPI, Malaise HEENTM: Yes: See HPI. No: Symptoms Reported Respiratory: Yes: Symptoms reported, See HPI, Cough Musculoskeletal: Yes: Symptoms Reported, See HPI, Muscle Pain All Other Systems: Reviewed and Negative *Physical Exam - Vital Signs Last Vital Signs Temp Pulse Resp BP Pulse Ox 98.0 F 89 18 118/88 99 08/29/18 10:46 08/29/18 10:46 08/29/18 10:46 08/29/18 10:46 08/29/18 10:46 - Physical Exam General Appearance: Yes: Nourished, Appropriately Dressed. No: Apparent Distress HEENT: positive: BARBARA, Normal ENT Inspection, TMs Normal, Pharynx Normal Neck: positive: Supple. negative: Lymphadenopathy (R), Lymphadenopathy (L) Respiratory/Chest: positive: Lungs Clear (no reproducible tenderness with deep inspiration although with pressure to sternum and chest wall, also with movement pain mildly reproduced), Normal Breath Sounds Gastrointestinal/Abdominal: positive: Normal Bowel Sounds, Soft. negative: Tender Extremity: positive: Normal Capillary Refill, Normal Range of Motion ( laboratory produced chest pain with flexion and pectoralis contraction) Integumentary: positive: Normal Color, Pale Neurologic: positive: powerhouse attendant II-XII NML intact, Fully Oriented, Alert, Normal Mood/ Affect, Normal Response, Motor Strength 5/5 Moderate Sedation - Procedure Monitoring Vital Signs: Procedure Monitoring Vital Signs Temperature 98.0 F 08/29/18 10:46 Pulse Rate 89 08/29/18 10:46 Respiratory Rate 18 08/29/18 10:46 Blood Pressure 118/88 08/29/18 10:46 O2 Sat by Pulse Oximetry (%) 99 08/29/18 10:46 Heart Score/ECG Review - ST and T Non Specific ST-T Wave changes: No - ECG Impressions Normal ECG: Yes Non-specific ST Elevation: No Ischemic Changes: No Progress Note - Progress Note Progress Note: Soria skeletal chest pain, will treat with NSAIDs and rest, will also add some antacids/ancillary reflux medication. Follow-up with PMD as needed *DC/Admit/Observation/Transfer Diagnosis at time of Disposition: Muscular chest pain - Discharge Dispostion Disposition: HOME Condition at time of disposition: Stable Decision to Admit order: No - Prescriptions Prescriptions: Famotidine [Pepcid -] 20 mg PO BID #14 tablet Naproxen [Naprosyn -] 500 mg PO BID #30 tablet - Referrals Referrals: Chary Guillen [Primary Care Provider] - - Patient Instructions Printed Discharge Instructions: DI for Atypical Chest Pain Additional Instructions: Rest, ice to area on and off for 15 minutes 4-6 times a day Avoid heavy lifting or exercise until pain and swelling is resolved or until further directed Keep area highly elevated to reduce swelling Use splints/Anderson wrap as directed Followup with orthopedist in one to 2 days if not improving, if significantly improved may wait one week for followup with orthopedist May use Naprosyn 500mg every 12 hours as needed for pain, take with food - Post Discharge Activity Forms/Work/School Notes: Back to Work
[2018-08-29] MEDS ORDERED: IBUPROFEN 600 MG TABLET (FP) PO ONE ×2 (12:19→12:20)
[2018-08-29] MEDS ORDERED: MAG HYDROX/AL HYDROX/SIMETH 30 ML UNIT-DOSE CUP PO ONE (12:19)
[2018-08-29] MEDS ORDERED: MAG HYDROX/AL HYDROX/SIMETH 30 ML UNIT-DOSE CUP ONE (12:20)
--- NOTE | 2018-09-03 12:34 | EKG ---
Test Reason : Blood Pressure : / mmHG Vent. Rate : 080 BPM Atrial Rate : 080 BPM P-R Int : 138 ms QRS Dur : 086 ms QT Int : 340 ms P-R-T Axes : 053 034 049 degrees QTc Int : 392 ms NORMAL SINUS RHYTHM WITH SINUS ARRHYTHMIA NORMAL ECG WHEN COMPARED WITH ECG OF 05-DEC-2017 02:41, NO SIGNIFICANT CHANGE WAS FOUND Confirmed by KAL JACKSON MD ([id number]) on 09/03/2018 12:33:48 PM Referred By: Confirmed By:KAL JACKSON MD
== END 2018-08-29 12:35 | disposition home or self-care (01) ==
LOC: JERFT 10:40
DX: M79.10 Myalgia, unspecified site (principal)
CPT/HCPCS: 93005; 93010; 99281-25

== ENCOUNTER 2018-09-14 14:30 | Emergency (ER) | payer OTHER ==
[2018-09-14 14:34] VITALS: BP 129/82; PULSE 105; TEMP 98.2; BMI 36.8
[2018-09-14] MEDS ORDERED: predniSONE 20 MG TABLET (UD) PO ONE (14:46)
[2018-09-14] MEDS ORDERED: ALBUTEROL SO4 2.5/IPRATROPIUM 0.5 INH SOL 3 ML VIAL.NEB. NEB ONE ×2 (14:46→14:50)
[2018-09-14] MEDS ORDERED: predniSONE 20 MG TABLET (UD) ONE (14:50)
--- NOTE | 2018-09-14 14:58 | PDOC ---
History of Present Illness - General Chief Complaint: Cold Symptoms Stated Complaint: CHEST PAIN Time Seen by Provider: 09/14/18 14:36 History Source: Patient Exam Limitations: No Limitations Past History - Past Medical History Allergies/Adverse Reactions: Allergies Allergy/AdvReac Type Severity Reaction Status Date / Time No Known Allergies Allergy Verified 08/14/18 21:53 Home Medications: Ambulatory Orders Albuterol Sulfate Inhaler - [Ventolin HFA Inhaler -] 1 - 2 inh PO Q4H PRN #1 inhaler 09/14/18 Prednisone [Deltasone] 40 mg PO DAILY #8 tablet 09/14/18 Asthma: Yes COPD: No Other medical history: eczema - Surgical History Neurologic Surgery: No - Immunization History Immunization Up to Date: No - Suicide/Smoking/Psychosocial Hx Smoking Status: No Smoking History: Never smoked Have you smoked in the past 12 months: No Number of Cigarettes Smoked Daily: 0 Hx Alcohol Use: No Drug/Substance Use Hx: No Substance Use Type: None *Physical Exam - Vital Signs Last Vital Signs Temp Pulse Resp BP Pulse Ox 98.2 F 105 H 18 129/82 100 09/14/18 14:33 09/14/18 14:33 09/14/18 14:33 09/14/18 14:33 09/14/18 14:33 - Physical Exam General Appearance: No: Apparent Distress HEENT: positive: Normal ENT Inspection, Normal Voice, Pharynx Normal. negative : Muffled/Hoarse voice, Pharyngeal Erythema, Tonsillar Exudate, Excessive drooling Respiratory/Chest: positive: Lungs Clear, Normal Breath Sounds. negative: Respiratory Distress, Accessory Muscle Use Gastrointestinal/Abdominal: positive: Soft Integumentary: positive: Normal Color Neurologic: positive: Alert Moderate Sedation - Procedure Monitoring Vital Signs: Procedure Monitoring Vital Signs Temperature 98.2 F 09/14/18 14:33 Pulse Rate 105 H 09/14/18 14:33 Respiratory Rate 18 09/14/18 14:33 Blood Pressure 129/82 09/14/18 14:33 O2 Sat by Pulse Oximetry (%) 100 09/14/18 14:33 ED Treatment Course - Medications Given in the ED: ED Medications Discontinued Medications Generic Name Dose Route Start Last Admin Trade Name Freq PRN Reason Stop Dose Admin Albuterol/Ipratropium 1 amp 09/14/18 14:46 12/27/18 14:52 Duoneb - NEB 09/14/18 14:47 1 amp ONCE ONE Administration Prednisone 60 mg 09/14/18 14:46 09/14/18 14:52 Deltasone - PO 09/14/18 14:47 60 mg ONCE ONE Administration Medical Decision Making - Medical Decision Making 23 y/o M hx of asthma (never intubated, never hospitalized), eczema presents due to worsening of asthma sxs from 3 days ago; mentions having chest tightness and SOB. Sxs were triggered after using vape. Has been using Albuterol nebulizer which has been helping been sxs, but states he is using it too frequently. Also had mild rhinorrhea and congestion which improved after using Sudafed. Denies fever, sore throat, abd pain, n/v. Denies smoking Asthma Plan: Duoneb x1, Prednisone 60 mg x1 09/14/18 14:53 Patient feeling much better on reassessment No longer with any wheezing Patient advised to f/u with his PCP with further management of his asthma 09/14/18 15:33 *DC/Admit/Observation/Transfer Diagnosis at time of Disposition: Asthma Qualifiers: Asthma severity: mild Asthma persistence: unspecified Asthma complication type : uncomplicated Qualified Code(s): J45.909 - Unspecified asthma, uncomplicated - Discharge Dispostion Disposition: HOME Condition at time of disposition: Improved Decision to Admit order: No - Prescriptions Prescriptions: Albuterol Sulfate Inhaler - [Ventolin HFA Inhaler -] 1 - 2 inh PO Q4H PRN #1 inhaler PRN Reason: Shortness Of Breath Prednisone [Deltasone] 40 mg PO DAILY #8 tablet - Referrals Referrals: Chary Guillen [Primary Care Provider] - 3 days - Patient Instructions Printed Discharge Instructions: DI for Asthma -- Adult Additional Instructions: Thank you for choosing [facility]. It was a pleasure taking care of you. Use Albuterol nebulizer as needed to help with shortness of breath Take Prednisone daily for next few days Follow-up with your primary care doctor for further management of your asthma. Return to the Emergency Department if your symptoms worsen or persist or have other concerning symptoms. - Post Discharge Activity
== END 2018-09-14 15:37 | disposition home or self-care (01) ==
LOC: JERFT 14:30
DX: J45.909 Unspecified asthma, uncomplicated (principal)
CPT/HCPCS: 99281-25

== ENCOUNTER 2019-02-06 12:06 | Emergency (ER) | payer SELFPAY ==
[2019-02-06 12:18] VITALS: BP 135/87; PULSE 96; TEMP 98.1; BMI 36.0
--- NOTE | 2019-02-06 14:19 | PDOC ---
History of Present Illness - General Chief Complaint: Cold Symptoms Stated Complaint: COUGH/ASTHMA Time Seen by Provider: 02/06/19 14:10 - History of Present Illness Initial Comments: 02/06/19 14:19 23-year-old male with a past medical history significant for asthma presents for evaluation of cough and stuffy nose times one day Past History - Past Medical History Allergies/Adverse Reactions: Allergies Allergy/AdvReac Type Severity Reaction Status Date / Time No Known Allergies Allergy Verified 02/06/19 12:18 Home Medications: Ambulatory Orders Budesonide [Rhinocort Allergy] 1 spray NS ONCE #1 spray.pump 02/06/19 Cetirizine HCl/Pseudoephedrine [Zyrtec-D Tablet] 1 each PO DAILY #30 tab.er.12h 02/06/19 Asthma: Yes COPD: No - Surgical History Neurologic Surgery: No - Immunization History Immunization Up to Date: No - Suicide/Smoking/Psychosocial Hx Smoking Status: No Smoking History: Never smoked Have you smoked in the past 12 months: No Number of Cigarettes Smoked Daily: 0 Information on smoking cessation initiated: No Hx Alcohol Use: No Drug/Substance Use Hx: No Substance Use Type: None Review of Systems - Review of Systems Constitutional: No: Fever HEENTM: Yes: Nose Congestion Respiratory: Yes: Cough *Physical Exam - Vital Signs Last Vital Signs Temp Pulse Resp BP Pulse Ox 98.1 F 96 H 18 135/87 97 02/06/19 12:16 02/06/19 12:16 02/06/19 12:16 02/06/19 12:16 02/06/19 12:16 - Physical Exam Comments: 02/06/19 14:19 HEAD: NC/AT EYES: Conjuntiva clear Ears: Canals and TM's normal NOSE: No d/c THROAT: Moist mucous membrances, oral pharanx clear, uvula midline NECK: Supple without adenopathy CARDIAC: S1 S2 LUNGS: CTA Full and Equal breath sounds ABDOMEN: Soft NT ND MS: Full ROM in all joints without edema NEUROLOGIC: No gross sensory or motor deficits, NVID SKIN: Normal color and temperature no lesions or rashes Medical Decision Making - Medical Decision Making 02/06/19 14:18 Antihistamine and steroid all nasal spray for seasonal ALLERGIES follow-up with ENT *DC/Admit/Observation/Transfer Diagnosis at time of Disposition: Seasonal allergies - Discharge Dispostion Disposition: HOME Condition at time of disposition: Stable Decision to Admit order: No - Prescriptions Prescriptions: Budesonide [Rhinocort Allergy] 1 spray NS ONCE #1 spray.pump Cetirizine HCl/Pseudoephedrine [Zyrtec-D Tablet] 1 each PO DAILY #30 tab.er.12h - Referrals Referrals: Chary Guillen [Primary Care Provider] - Fernando Holt MD [Staff Physician] - - Patient Instructions Printed Discharge Instructions: Allergic Rhinitis Additional Instructions: Please take the antihistamine with decongestant as directed use a nasal spray as directed follow-up with ear nose and throat doctor in 1-2 days for further evaluation and treatment options and return to the emergency room should symptoms worsen or go unresolved. - Post Discharge Activity Forms/Work/School Notes: Back to Work
== END 2019-02-06 14:22 | disposition home or self-care (01) ==
LOC: JERFT 12:06
DX: J30.2 Other seasonal allergic rhinitis (principal)
CPT/HCPCS: 99281-25

== ENCOUNTER 2019-04-02 20:29 | Emergency (ER) | payer OTHER ==
[2019-04-02 20:36] VITALS: BP 118/73; PULSE 80; TEMP 98.1; BMI 37.8
--- NOTE | 2019-04-02 20:38 | PDOC ---
Rapid Medical Evaluation Chief Complaint: Suture/Staple Removal (other) Time Seen by Provider: 04/02/19 20:34 Medical Evaluation: Allergies Allergy/AdvReac Type Severity Reaction Status Date / Time No Known Allergies Allergy Verified 04/01/19 03:34 04/02/19 20:36 I have performed a brief in-person evaluation of this patient. The patient presents with a chief complaint of: suture removal s/p laceration right posterior elbow a week ago with metal piece from AC unit requiring suture placement at a hospital in . report last tetanus 3 years ago Pertinent physical exam findings: 3cm linear laceration to posterior right elbow with [address] no skin erythema. no evidence of wound infection. I have ordered the following: nothing The patient will proceed to the ED for further evaluation Discharge Disposition - Diagnosis Visit for suture removal - Discharge Dispostion Condition at time of disposition: Stable - Referrals - Patient Instructions - Post Discharge Activity
--- NOTE | 2019-04-02 21:14 | PDOC ---
Suture Removal/Wound Check HPI - History of Present Illness Chief Complaint: Suture/Staple Removal (other) Stated Complaint: STITCHES REMOVAL Time Seen by Provider: 04/02/19 20:34 History Source: Yes: Patient Exam Limitations: Yes: Clinical Condition Treated at: Other ED ([facility]) - Previous ED Treatment Type of procedure performed on last visit: Yes: Laceration Repair Tetanus Immunization: Yes: Up to Date Past History - Past Medical History Allergies/Adverse Reactions: Allergies Allergy/AdvReac Type Severity Reaction Status Date / Time No Known Allergies Allergy Verified 04/02/19 20:36 Home Medications: Ambulatory Orders Budesonide [Rhinocort Allergy] 1 spray NS ONCE #1 spray.pump 02/06/19 Cetirizine HCl/Pseudoephedrine [Zyrtec-D Tablet] 1 each PO DAILY #30 tab.er.12h 02/06/19 Asthma: Yes COPD: No Other medical history: eczema - Surgical History Neurologic Surgery: No - Immunization History Immunization Up to Date: Yes (2016) - Suicide/Smoking/Psychosocial Hx Smoking Status: No Smoking History: Never smoked Have you smoked in the past 12 months: No Number of Cigarettes Smoked Daily: 0 Hx Alcohol Use: No Drug/Substance Use Hx: No Substance Use Type: None Suture Removal/Wound Check PE - Physical Exam Laceration/Wound Check Symptoms: reports: None. denies: Pain, Fever, Chills, Redness, Discharge, Bleeding, Numbness Current Severity Level: None Location of Laceration/Wound: right: Elbow (posterior elbow) *Review of Systems - Review of Systems Able to Perform ROS?: Yes Constitutional: No: Chills, Fever, Malaise HEENTM: No: Symptoms Reported Respiratory: No: Symptoms reported Cardiac (ROS): No: Symptoms Reported ABD/GI: No: Symptoms Reported Musculoskeletal: Yes: Symptoms Reported, Muscle Pain (posterior right elbow laceration) Integumentary: Yes: Symptoms Reported, Other (laceration to right posterior elbow with stiches in place). No: Erythema Neurological: No: Numbness, Paresthesia, Tingling All Other Systems: Reviewed and Negative *Physical Exam - Vital Signs Last Vital Signs Temp Pulse Resp BP Pulse Ox 98.1 F 80 18 118/73 99 04/02/19 20:32 04/02/19 20:32 04/02/19 20:32 04/02/19 20:32 04/02/19 20:32 - Physical Exam General Appearance: Yes: Nourished, Appropriately Dressed. No: Apparent Distress HEENT: positive: Normal ENT Inspection Neck: positive: Supple Respiratory/Chest: negative: Respiratory Distress, Accessory Muscle Use Musculoskeletal: positive: Normal Inspection Extremity: positive: Normal Capillary Refill, Normal Inspection Integumentary: positive: Normal Color, Dry, Other (well healed 3cm linear laceration to posterior right elbow with [address] no skin erythema. no drainage from wound site. no wound dehiscense. no evidence of wound infection). negative: Erythema Neurologic: positive: Fully Oriented, Alert, Normal Response, Motor Strength 5/ 5 (RUE) Medical Decision Making - Medical Decision Making 04/02/19 21:21 Patient with no med hx present for suture removal s/p laceration to right posterior elbow a week ago requiring suture placement in [facility]. Denies redness or discharge to wound site. exam significant for 3 cm linear laceration to posterior right elbow w/o evidence of wound infection. Pt up to date on tetanus vaccine. 4 sutures removed with suture removal kit w/o complication. Bacitracin applied to wound. Pt educated on continues home wound care. Patient stable for discharge *DC/Admit/Observation/Transfer Diagnosis at time of Disposition: Visit for suture removal - Discharge Dispostion Disposition: HOME Condition at time of disposition: Stable Decision to Admit order: No - Referrals Referrals: Chary Guillen [Primary Care Provider] - - Patient Instructions Printed Discharge Instructions: DI for Suture Removal Additional Instructions: continue with home neosporin twice a day until wound is completely healed - Post Discharge Activity
== END 2019-04-02 21:15 | disposition home or self-care (01) ==
LOC: JERFT 20:29
DX: Z48.817 Encounter for surgical aftercare following surgery on the skin and subcutaneous tissue (principal); Z48.02 Encounter for removal of sutures
CPT/HCPCS: 99281-25

== ENCOUNTER 2019-05-14 20:21 | Emergency (ER) | payer OTHER ==
[2019-05-14 20:39] VITALS: BP 123/72; PULSE 96; TEMP 98.4; BMI 38.6
[2019-05-14] MEDS ORDERED: DIPHTH,PERTUSS(ACELL),TET 0.5 ML DISP.SYRIN IM ONE (21:26)
--- NOTE | 2019-05-14 21:30 | PDOC ---
History of Present Illness - General Chief Complaint: Cold Symptoms Stated Complaint: ASTHMA/SOB/CHEST PAIN UPON COUGHING Time Seen by Provider: 05/14/19 20:53 - History of Present Illness Initial Comments: 05/14/19 21:27 23-year-old male with a past medical history significant for asthma and eczema presents for evaluation of cough 4 days and cold-like symptoms. No systemic symptoms. Past History - Past Medical History Allergies/Adverse Reactions: Allergies Allergy/AdvReac Type Severity Reaction Status Date / Time No Known Allergies Allergy Verified 05/14/19 20:40 Home Medications: Ambulatory Orders Albuterol 0.083% Nebulizer Bettina [Ventolin 0.083% Nebulizer Soln -] 1 neb NEB Q4H PRN #20 vial 05/14/19 Albuterol Sulfate Inhaler - [Ventolin Hfa Inhaler -] 1 - 2 inh PO QID PRN Asthma: Yes COPD: No - Surgical History Neurologic Surgery: No - Immunization History Immunization Up to Date: Yes (2016) - Suicide/Smoking/Psychosocial Hx Smoking Status: No Smoking History: Never smoked Have you smoked in the past 12 months: No Number of Cigarettes Smoked Daily: 0 Information on smoking cessation initiated: No Hx Alcohol Use: Yes (occasional) Drug/Substance Use Hx: No Substance Use Type: None Review of Systems - Review of Systems Constitutional: No: Fever Respiratory: Yes: Cough *Physical Exam - Vital Signs Last Vital Signs Temp Pulse Resp BP Pulse Ox 98.4 F 96 H 16 123/72 100 05/14/19 20:37 05/14/19 20:37 05/14/19 20:37 05/14/19 20:37 05/14/19 20:37 - Physical Exam Comments: 05/14/19 21:29 HEAD: NC/AT EYES: Conjuntiva clear Ears: Canals and TM's normal NOSE: No d/c THROAT: Moist mucous membrances, oral pharanx clear, uvula midline NECK: Supple without adenopathy CARDIAC: S1 S2 LUNGS: Wheezing bilateral bases ABDOMEN: Soft NT ND MS: Full ROM in all joints without edema NEUROLOGIC: No gross sensory or motor deficits, NVID SKIN: Normal color and temperature no lesions or rashes Medical Decision Making - Medical Decision Making 05/14/19 22:06 Cleared after 3 DuoNeb's *DC/Admit/Observation/Transfer Diagnosis at time of Disposition: Wheezing, Asthma - Discharge Dispostion Disposition: HOME Condition at time of disposition: Improved Decision to Admit order: No - Referrals Referrals: Chary Guillen [Primary Care Provider] - - Patient Instructions Additional Instructions: Continue a home nebulizer treatment as directed. Return to the emergency room for worsening symptoms. Follow-up with her primary care physician in 1-2 days for further evaluation and treatment options. - Post Discharge Activity
[2019-05-14] MEDS ORDERED: DEXAMETHASONE LIQUID 0.5 MG/5 ML PO ONE (21:35)
[2019-05-14] MEDS ORDERED: ALBUTEROL SO4 2.5/IPRATROPIUM 0.5 INH SOL 3 ML VIAL.NEB. NEB ONE ×2 (21:35→21:45)
[2019-05-14] MEDS: ALBUTEROL SO4 2.5/IPRATROPIUM 0.5 INH SOL 3 ML VIAL.NEB. NEB SCH ×4 (21:38→22:14)
[2019-05-14] MEDS ORDERED: DEXAMETHASONE SOD PHOSPHATE 10 MG/1 ML VIAL ONE (21:45)
== END 2019-05-14 22:21 | disposition home or self-care (01) ==
LOC: JERFT 20:21
PROC: 3E0F7GC Introduction of Other Therapeutic Substance into Respiratory Tract, Via Natural or Artificial Opening (ICD-10-PCS; principal; 2019-05-14)
DX: J45.909 Unspecified asthma, uncomplicated (principal)
CPT/HCPCS: 94640; 99281-25

== ENCOUNTER 2019-09-09 18:23 | Emergency (ER) | payer OTHER ==
[2019-09-09 18:53] VITALS: BMI 39.4
--- NOTE | 2019-09-09 20:26 | PDOC ---
History of Present Illness - General Chief Complaint: Cold Symptoms Stated Complaint: SOB Time Seen by Provider: 09/09/19 20:01 History Source: Patient Exam Limitations: No Limitations - History of Present Illness Initial Comments: 09/09/19 20:05 Patient is a 24 year old male with h/o asthma, ecezma c/o cough x 2 days. States went to Urgent care and was put on Theraflu and cough meds promethazine. States has been taking the Theraflu but today has been having nausea with coughing and vomited the Theraflu. States has runny nose, nasal congestion, fever, bodyache and feels week. PMD: Dr. Brooke PMHX: as above PSOCHX: neg cig, drug, occ etoh ALL: NKDA GENERAL/CONSTITUTIONAL: [No fever or chills. No weakness. No weight change.] HEAD, EYES, EARS, NOSE AND THROAT: [No change in vision. No ear pain or discharge. No sore throat.] CARDIOVASCULAR: [No chest pain or shortness of breath.] RESPIRATORY: [(+) cough, wheezing, or hemoptysis.] GASTROINTESTINAL: [(+) nausea, (+) vomiting, (-) diarrhea or constipation. No rectal bleeding.] GENITOURINARY: [No dysuria, frequency, or change in urination.] MUSCULOSKELETAL: [No joint or muscle swelling or pain. No neck or back pain.] SKIN AND BREASTS: [No rash or easy bruising.] NEUROLOGIC: [No headache, vertigo, loss of consciousness, or loss of sensation.] PSYCHIATRIC: [No depression or anxiety.] ENDOCRINE: [No increased thirst. No abnormal weight change.] HEMATOLOGIC/LYMPHATIC: [No anemia, easy bleeding, or history of blood clots.] ALLERGIC/IMMUNOLOGIC: [No hives or skin allergy. No latex allergy.] GENERAL: [The patient is awake, alert, and fully oriented, in no acute distress. ] HEAD: [Normal with no signs of trauma.] EYES: [Pupils equal, round and reactive to light, extraocular movements intact, sclera anicteric, conjunctiva clear.] ENT: [Ears normal, nares patent hyperemic, oropharynx clear without exudates, mild erythema. dry mucous membranes.] NECK: [Normal range of motion, supple without lymphadenopathy, JVD, or masses.] LUNGS: [Breath sounds equal, clear to auscultation bilaterally. No wheezes, and no crackles.] HEART: [Regular rate and rhythm, normal S1 and S2 without murmur, rub.] ABDOMEN: [Soft, nontender, normoactive bowel sounds. No guarding, no rebound. No masses.] EXTREMITIES: [Normal range of motion, no edema. No clubbing or cyanosis. No cords, erythema, or tenderness.] NEUROLOGICAL: [Cranial nerves II through XII grossly intact. Normal speech, normal gait.] PSYCH: [Normal mood, normal affect.] SKIN: [Warm, Dry, normal turgor, no rashes or lesions noted.] Past History - Past Medical History Allergies/Adverse Reactions: Allergies Allergy/AdvReac Type Severity Reaction Status Date / Time No Known Allergies Allergy Verified 09/09/19 18:50 Home Medications: Ambulatory Orders Albuterol 0.083% Nebulizer Bettina [Ventolin 0.083% Nebulizer Soln -] 1 neb NEB Q4H PRN #20 vial 05/14/19 Albuterol Sulfate Inhaler - [Ventolin Hfa Inhaler -] 1 - 2 inh PO QID PRN Asthma: Yes COPD: No - Surgical History Neurologic Surgery: No - Immunization History Immunization Up to Date: Yes (2016) - Psycho Social/Smoking Cessation Hx Smoking Status: No Smoking History: Never smoked Have you smoked in the past 12 months: No Number of Cigarettes Smoked Daily: 0 Information on smoking cessation initiated: No Hx Alcohol Use: No Drug/Substance Use Hx: No Substance Use Type: None *Physical Exam - Vital Signs Last Vital Signs Temp Pulse Resp BP Pulse Ox 103.3 F H 138 H 20 123/69 95 09/09/19 18:50 09/09/19 18:50 09/09/19 18:50 09/09/19 18:50 09/09/19 18:50 ED Treatment Course - LABORATORY CBC & Chemistry Diagram: 09/09/19 20:29 09/09/19 20:41 Medical Decision Making - Medical Decision Making 09/09/19 20:05 Patient is a 24 year old male with h/o asthma, ecezma c/o cough x 2 days. went to Urgent care and was put on Theraflu and cough meds promethazine. has been taking the Theraflu but today has been having nausea with coughing and postop tussive, vomited the Theraflu. has runny nose, nasal congestion, fever, bodyache and feels week. Symptoms consistent with flulike illness. Labs, UA Toradol, Decadron, neb treatment IV fluids Reassess 09/09/19 21:26 labs reviewed noted patient (+) for Flu A Noted patient also dehydrated but given 2 L of IV fluid and is tolerating fluids. I discussed the physical exam findings, ancillary test results and final diagnoses with the patient. I answered all of the patient's questions. The patient was satisfied with the care received and felt comfortable with the discharge plan and treatment plan. The Patient agrees to follow up with the primary care physician within 24-72 hours. Discharge - Discharge Information Problems reviewed: Yes Clinical Impression/Diagnosis: Influenza A Condition: Stable Disposition: HOME - Follow up/Referral Referrals: Caterina Riley MD [Primary Care Provider] - - Patient Discharge Instructions Patient Printed Discharge Instructions: DI for Influenza -- Adult Additional Instructions: Your Discharge Instructions: You must call primary care physician within 24 hours to arrange follow-up. Return to the Emergency Department with any new, persistent or worsening symptoms, for fever, chills, SOB, dizziness or any other concerning changes that may occur. Continue with Tylenol every 4 hours and Motrin every 6 hours until your symptoms resolve. Use your albuterol puffer if needed for cough. - Post Discharge Activity
[2019-09-09] MEDS ORDERED: KETOROLAC TROMETHAMINE 30 MG/1 ML VIAL IVPUSH ONE (20:29)
[2019-09-09] MEDS ORDERED: ONDANSETRON 4 MG/2 ML VIAL IVPUSH ONE (20:29)
[2019-09-09] MEDS ORDERED: SODIUM CHLORIDE 0.9% 500 ML INFUS.BAG IV ONE (20:29)
[2019-09-09] MEDS ORDERED: DEXAMETHASONE SOD PHOSPHATE 10 MG/1 ML VIAL IVPUSH ONE (20:29)
[2019-09-09 20:48] LABS: BASO % 0.5 % (0-2.0); EOS % 0.1 % (0-4.5); HEMATOCRIT 49.9 % (35.4-49); HEMOGLOBIN 16.5 GM/dL (11.7-16.9); LYMPH % 1.6 % (8-40); MCH 26.6 pg (25.7-33.7); MCHC 33.2 g/dl (32.0-35.9); MEAN CELL VOLUME 80.2 fl (80-96); MEAN PLT VOLUME 8.8 fl (7.5-11.1); MONO % 4.5 % (3.8-10.2); NEUT % 93.3 % (42.8-82.8); PLATELET COUNT 220 K/MM3 (134-434); RBC 6.22 M/mm3 (4.00-5.60); RDW 15.5 % (11.9-15.9); WHITE BLOOD COUNT 11.8 K/mm3 (4.0-10.0)
[2019-09-09 20:56] LABS: EPI CELLS 15.6 /HPF (0-5/HPF); HYALINE CASTS 4 /lpf (0-8); URINE APPEARANCE CLEAR; URINE BILIRUBIN NEGATIVE (NEGATIVE); URINE COLOR YELLOW; URINE GLUCOSE (UA) 1+ (NEGATIVE); URINE KETONE 2+ (NEGATIVE); URINE LEUK ESTERASE NEGATIVE (NEGATIVE); URINE NITRITE NEGATIVE (NEGATIVE); URINE PROTEIN 3+ (NEGATIVE); URINE RBC 2 /hpf (0-4)
[2019-09-09 21:22] LABS: URINE WBC 11.7 /hpf (0-5)
[2019-09-09 22:08] LABS: ANISOCYTOSIS 1+; MACROCYTOSIS 1+; PLATELET ESTIMATE ADEQUATE
[2019-09-09 22:49] VITALS: BP 112/66; PULSE 99; TEMP 99
--- NOTE | 2019-09-14 14:12 | EKG ---
Test Reason : Blood Pressure : / mmHG Vent. Rate : 130 BPM Atrial Rate : 130 BPM P-R Int : 144 ms QRS Dur : 082 ms QT Int : 280 ms P-R-T Axes : 055 015 064 degrees QTc Int : 412 ms SINUS TACHYCARDIA NONSPECIFIC T WAVE ABNORMALITY ABNORMAL ECG WHEN COMPARED WITH ECG OF 29-AUG-2018 10:48, VENT. RATE HAS INCREASED BY 50 BPM Confirmed by STEPHANIE MENDOZA MD ([id number]) on 09/14/2019 2:11:55 PM Referred By: Confirmed By:STEPHANIE MENDOZA MD
== END 2019-09-09 22:49 | disposition home or self-care (01) ==
LOC: JER 18:23
PROC: 3E033GC Introduction of Other Therapeutic Substance into Peripheral Vein, Percutaneous Approach (ICD-10-PCS; principal; 2019-09-09)
PROC: 3E0333Z Introduction of Anti-inflammatory into Peripheral Vein, Percutaneous Approach (ICD-10-PCS; 2019-09-09)
PROC: 3E0333Z Introduction of Anti-inflammatory into Peripheral Vein, Percutaneous Approach (ICD-10-PCS; 2019-09-09)
DX: J09.X2 Influenza due to identified novel influenza A virus with other respiratory manifestations (principal); E86.0 Dehydration; Z87.09 Personal history of other diseases of the respiratory system; L30.9 Dermatitis, unspecified
CPT/HCPCS: 36415; 81003; 85025; 87070; 87804; 87880; 93005; 93010; 99282-25; J1100